=== PATIENT | female | born 1995 | race African-American/Black ===

== ENCOUNTER 2017-03-09 17:56 | Inpatient (IN) | payer OTHER ==
[~2017-03-09] VITALS: Ht 162.6 cm; Wt 66.4 kg
[2017-03-09] MEDS ORDERED: [UNRECOGNIZED DRUG - OTHER] IV STA (18:11)
[2017-03-09] MEDS ORDERED: ACETAMINOPHEN IV STA (18:11)
[2017-03-09] MEDS ORDERED: ONDANSETRON INJ 2 MG/ML 2 ML VIAL IV STA (18:11)
[2017-03-09] MEDS ORDERED: SODIUM CHLORIDE 0.9% 1000ML 2,000 ML IV STA (18:11)
[2017-03-09] MEDS ORDERED: ACETAMINOPHEN 1000 MG/100 ML IV IV ONE (18:19)
--- NOTE | 2017-03-09 18:29 | EMERGENCY ROOM VISIT NOTE ---
History Report prepared by Mignon: Vanessa Nguyen Under the Supervision of: Dr. David Dale M.D. First contact with patient: 18:05 Chief Complaint: NAUSEA Stated Complaint: NAUSEA, FEVER, CAN NOT KEEP ANYTHING DOWN Nursing Triage Summary: Having headache, abdominal pain, vomitting, and fevers since Saturday. Denies diarrhea. Came back from home in [place] last Saturday for the . History of Present Illness The patient is a 21 year old female who presents to the Emergency Room with complaints of nausea and fevers starting 4 days ago. Waxing and waning body aches, fevers, chills, nausea, vomiting, cough, fatigue, anorexia over last 4 days. Associated headache without neck stiffness nor photophobia. No neuro symptoms nor seizures. Admits returning from home in [place] about a week ago. She also notes that she had malaria in high school of which this is similar. She has took Tylenol yesterday for her symptoms. The patient denies any urinary symptoms or swelling. Exertion makes worse, nothing makes better. She has been on no recent antibiotics. No ebola exposure nor contacts that have worked with ebola nor been in [place]. Source of History: patient Onset: 4 days ago Timing: intermittent Associated Symptoms: + fevers, + headache, No urinary symptoms Note: pt. denies swelling. Review of Systems See HPI for pertinent positives & negatives. A total of 10 systems reviewed and were otherwise negative. Past Medical & Surgical Medical Problems: (1) Lactic acid increased (2) Malaria (3) Malaria (4) Sepsis Family History no pertinent family history stated Social History Smoking Status: Never Smoker Occupation Status: [employer] Current/Historical Medications Scheduled Acetaminophen (Tylenol), 1,000 MG PO PRN UD Allergies Coded Allergies: No Known Allergies (Unverified , 03/09/17) Physical Exam Vital Signs Date Time Temp Pulse Resp B/P (MAP) Pulse Ox O2 Delivery O2 Flow Rate FiO2 03/09/17 21:40 37.6 106 18 84/43 98 Room Air 03/09/17 20:00 39.0 103 18 97/45 98 Room Air 03/09/17 19:30 104 20 98 Room Air 03/09/17 18:53 112 19 100/56 100 Room Air 03/09/17 18:48 120 03/09/17 17:58 39.2 135 18 98/61 98 Room Air Physical Exam GENERAL: Patient is ill appearing, in moderate distress. Non productive cough, periodically dry heaving. HEENT: No acute trauma, normocephalic atraumatic, mucous membranes dehydrated, no nasal congestion, no scleral icterus. NECK: No stridor, no adenopathy, no meningismus, trachea is midline. LUNGS: No dyspnea. Active stridor, clear to auscultation and equal bilaterally. No wheeze, no rhonchi. HEART: Tachycardic. No murmurs, rubs, gallops appreciated. ABDOMEN: Soft, nontender, bowel sounds positive, no masses appreciated, no peritonitis. BACK: No midline tenderness, no CVA tenderness EXTREMITIES: Normal motion all extremities, no cyanosis, no edema. NEUROLOGIC: Alert and oriented, no acute motor or sensory deficits, no focal weakness, cranial nerves grossly intact. SKIN: No rash, no jaundice, no diaphoresis. Medical Decision & Procedures ER Provider Diagnostic Interpretation: Radiology results and stated below per my review and radiologist interpretation: CHEST ONE VIEW PORTABLE FINDINGS: The patient is rotated. No pneumothorax or pleural effusion is present. There is no consolidation to suggest pneumonia. Cardiomediastinal silhouette is normal. Pulmonary vascularity is normal. IMPRESSION: No acute cardiopulmonary findings. Electronically signed by: Myles Rico M.D. Laboratory Results 03/09/17 18:33 Red Blood Count 3.92, Mean Corpuscular Volume 86.5, Mean Corpuscular Hemoglobin 28.8, Mean Corpuscular Hemoglobin Concent 33.3, Mean Platelet Volume 10.7, Neutrophils (%) (Auto) 88.0, Lymphocytes (%) (Auto) 9.0, Monocytes (%) (Auto) 1.9, Eosinophils (%) (Auto) 0.2, Basophils (%) (Auto) 0.2, Neutrophils # (Auto) 4.98, Lymphocytes # (Auto) 0.51, Monocytes # (Auto) 0.11, Eosinophils # (Auto) 0.01, Basophils # (Auto) 0.01 03/09/17 18:30 Test 03/09/17 18:30 03/09/17 18:33 03/09/17 18:37 03/09/17 20:15 Anion Gap 11.0 mmol/L (3-11) Est Creatinine Clear Calc Drug Dose 70.8 ml/min Estimated GFR () 75.9 Estimated GFR (Non- 65.5 BUN/Creatinine Ratio 8.3 (10-20) Calcium Level 8.7 mg/dl (8.5-10.1) Magnesium Level 1.4 mg/dl (1.8-2.4) Total Bilirubin 2.1 mg/dl (0.2-1) Direct Bilirubin 0.5 mg/dl (0-0.2) Aspartate Amino Transf (AST/SGOT) 24 U/L (15-37) Alanine Aminotransferase (ALT/SGPT) 18 U/L (12-78) Alkaline Phosphatase 70 U/L (45-117) Total Creatine Kinase 98 U/L (26-192) Creatine Kinase MB < 0.5 ng/ml (0.5-3.6) Creatine Kinase MB Ratio (0-3.0) Troponin I < 0.015 ng/ml (0-0.045) Total Protein 8.0 gm/dl (6.4-8.2) Albumin 3.4 gm/dl (3.4-5.0) White Blood Count 5.66 K/uL (4.8-10.8) Red Blood Count 3.92 M/uL (4.2-5.4) Hemoglobin 11.3 g/dL (12.0-16.0) Hematocrit 33.9 % (37-47) Mean Corpuscular Volume 86.5 fL (80-100) Mean Corpuscular Hemoglobin 28.8 pg (25-34) Mean Corpuscular Hemoglobin Concent 33.3 g/dl (32-36) Platelet Count 123 K/uL (130-400) Mean Platelet Volume 10.7 fL (7.4-10.4) Neutrophils (%) (Auto) 88.0 % Lymphocytes (%) (Auto) 9.0 % Monocytes (%) (Auto) 1.9 % Eosinophils (%) (Auto) 0.2 % Basophils (%) (Auto) 0.2 % Neutrophils # (Auto) 4.98 K/uL (1.4-6.5) Lymphocytes # (Auto) 0.51 K/uL (1.2-3.4) Monocytes # (Auto) 0.11 K/uL (0.11-0.59) Eosinophils # (Auto) 0.01 K/uL (0-0.5) Basophils # (Auto) 0.01 K/uL (0-0.2) RDW Standard Deviation 39.7 fL (36.4-46.3) RDW Coefficient of Variation 12.3 % (11.5-14.5) Immature Granulocyte % (Auto) 0.7 % Immature Granulocyte # (Auto) 0.04 K/uL (0.00-0.02) Tear Drop Cells 1+ Echinocytes 2+ Prothrombin Time 12.0 SECONDS (9.0-12.0) Prothromb Time International Ratio 1.1 (0.9-1.1) Bedside Lactic Acid Venous 3.14 mmol/L (0.90-1.70) Urine Color ORANGE Urine Appearance CLEAR (CLEAR) Urine pH 5.5 (4.5-7.5) Urine Specific [place] 1.023 (1.000-1.030) Urine Protein 1+ (NEG) Urine Glucose (UA) NEG (NEG) Urine Ketones 3+ (NEG) Urine Occult Blood 1+ (NEG) Urine Nitrite NEG (NEG) Urine Bilirubin NEG (NEG) Urine Urobilinogen NEG (NEG) Urine Leukocyte Esterase NEG (NEG) Urine WBC (Auto) 1-5 /hpf (0-5) Urine RBC (Auto) 0-4 /hpf (0-4) Urine Hyaline Casts (Auto) 1-5 /lpf (0-5) Urine Epithelial Cells (Auto) >30 /lpf (0-5) Urine Bacteria (Auto) NEG (NEG) Urine Test NEG (NEG) Laboratory results as reviewed by me. Medications Administered Medications (Trade) Dose Ordered Sig/Joseph Route Start Time Stop Time Status Last Admin Dose Admin Sodium Chloride 2,000 ml @ 999 mls/hr Q2H1M STAT IV 03/09/17 18:11 03/09/17 20:11 DC 03/09/17 18:11 999 MLS/HR Acetaminophen 1000 mg/ Acetaminophen 200 ml @ 400 mls/hr NOW STAT IV 03/09/17 18:11 03/09/17 18:40 DC 03/09/17 18:30 400 MLS/HR Ondansetron HCl (Zofran Inj) 4 mg NOW STAT IV 03/09/17 18:11 03/09/17 18:13 DC 03/09/17 18:30 4 MG Cefepime HCl 1000 mg/Dextrose 111.3 ml @ 200 mls/hr NOW STAT IV 03/09/17 19:32 03/09/17 20:05 DC 03/09/17 20:10 200 MLS/HR Doxycycline Hyclate 100 mg/ Dextrose 110 ml @ 50 mls/hr NOW STAT IV 03/09/17 19:32 03/09/17 21:43 DC 03/09/17 20:48 50 MLS/HR Sodium Chloride 1,000 ml @ 200 mls/hr Q5H STAT IV 03/09/17 19:55 03/10/17 00:54 03/09/17 20:15 200 MLS/HR Quinine Sulfate (QUINine SULFATE CAP) 650 mg NOW STAT PO 03/09/17 21:02 03/09/17 21:04 DC 03/09/17 21:43 648 MG Sodium Chloride 1,000 ml @ 999 mls/hr Q1H1M STAT IV 03/09/17 21:24 03/09/17 22:24 03/09/17 21:38 999 MLS/HR ECG Indication: nausea Rate (beats per minute): 114 Rhythm: sinus tachycardia Findings: no acute ischemic change, no ectopy ED Course 1809: The patient was evaluated in room A4B. A complete history and physical exam was performed. 1810: Nursing at bedside requested 2 IVs and a sepsis workup started. 1810: Zofran Inj 4 mg IV, Acetaminophen 1000 mg/Acetaminophen 200 ml @ 400 mls/ hr Protocol IV, Sodium Chloride 2000 ml @ 999 mls/hr. 1818: Ofirmev Iv 1000mg IV. 1838: I rechecked on the patient, her lactate is 4. 0: I reevaluated the patient she is no longer nauseous or shaking. Her heart rate is down to 107. The patient states that she flew directly from [facility] to [place]. She denies contact with anyone with Ebola or anyone who was sick. The patient denies that any of her family members have been recently been sick. She denies being on antibiotics. 1931: Doxycycline Hyclate 100 mg/Dextrose 110 ml @50 mls/hr IV. Cefepime HCl 1000 mg/Dextrose 111.3 ml @200 mls/hr IV. 1954: Sodium Chloride 1000 ml @ 200 mls/hr. 2014 I reevaluated the patient she is feeling much better. 2101: Quinine Sulfate 650 mg PO. 2030: Dr. Bustamante states we should transfer the patient to higher care. 2034: Discussed case with [facility] Malaria Hotline. Waiting for their return call to see what facilities have Malaria medication. 2047: Return call from Dr. Oviedo, the on-call Malaria specialist for the [facility]. He feels that as long as the patient's percentage is less than 5% she is not considered a severe malaria case. If this is the case and the patient can tolerate PO medications, she will be fine being monitored in our facility. 2052: Dr Brandin JACKMAN-Pathology stated that the patient consists most with malaria falciparum and has a 1% infection. 2057: I updated Dr. Tyron JACKMAN about the patient's results from Dr. Brandin JACKMAN -Pathology as well as the [facility]'s suggestions. 2123: Sodium Chloride 1000 ml @ 999 mls/hr. 2124: I reevaluated the patient, she is still tachycardic and is now sitting up. She no longer nauseous and is willing to be admitted for the night. 2125: Discussed the patient's case wit Dr. Armstrong.ZAIDA The patient will be evaluated for further treatment and disposition. 2145: Upon reevaluation, the patient is resting. Discussed results and treatment plan with the patient. She verbalized understanding and agreement with the treatment plan. The patient will be evaluated for further management. Medical Decision Differential: Viral, Pharyngitis, Cellulitis, Pneumonia, Influenza, Meningitis, Sepsis, Bacteremia, UTI/Pyelonephritis, Endocrine, Toxicologic, Parasitic Infection, Ebola, amongst other pathologies entertained. 21 yr old female with nausea, vomiting, body aches, chills/fevers, coming in waves over last few days. Notes recent return from [facility] for her [employer] yr college at [employer]. She is ill appearing in moderate distress. Labs with elevated lactic, mild bili elevation, hypoK, hypoMag, mild anemia, mild thrombocytopenia. WBC OK. EKG OK. She is not severely ascidotic. Her labs are not consistent with severe malarial infection. HR and BP improved with fluids and while septic by definition I do not feel that she is septic shock, and I feel it is likely much related to dehydration from fevers and lack of po intake over last few days. Regardless she was started on broad spectrum ABX, with Cefepime and Doxy. Doxy given concern this is malaria and it is only IV med that could treat malarial infection we have in hospital (besides clinda). She is breathing comfortably and feeling much better after fluids, zofran and IV Tylenol. She is mildly orthostatic and notes thirst still thus further fluids. Initial malaria smear positive thus I did talk this over with ID who noted that transfer will likely be necessary but will await further info from path. Path report with Falciparum most likely cause and her count being 1%. Reviewed with [facility] Malaria Physician (Dr Oviedo) to discuss options for treatment facilities and they note that patient does not currently meet severe falciparum infection and advise Oral meds if patient can tolerate this. Advise oral treatment of: 1. Malarone, 2. Caortin, 3. Quinine/Doxy, or 4. Mefloquine depending on what we have in facility. We do not have first two options thus I added on oral quinine to initial doxy I'd given earlier. Patient feeling well, she wishes to stay here if possible and understands if worsening or gets to point where she can not keep down meds she may need transfer. I re-discussed with Dr Altamirano and note patient has stabilized, is comfortable and looks well. We reviewed discussion with [facility] and their recommendations. He notes that with 1% malaria and her having responded well to fluids it is reasonable to keep here for monitoring/treatment. Appreciate his input throughout stay. Medication Reconcilliation Current Medication List: was personally reviewed by me Blood Pressure Screening Patient's blood pressure: Low blood pressure Blood pressure disposition: Did not require urgent referral Consults Time Called: 2029 Consulting Physician: Dr. Altamirano-[facility] Returned Call: 2030 Discussed the patient's case. Additional Consults: Time Called: 2045 Consulted Physician: Dr. Oviedo, the on-call Malaria specialist for the [facility] Returned Call: 2047 Additional Comments: Discussed the patient's case. He feels that as long as the patient's percentage is less than 5% she is not considered a severe malaria case. If this is the case and the patient can tolerate PO medications, she will be fine being monitored in our facility. Time Called: 2050 Consulted Physician: Dr. Brandin JACKMAN-Pathology Returned Call: 2052 Additional Comments: Discussed the patient's case. Dr. Ghotra states that the patient most consists with malaria falciparum and has a 1% infection. Impression Primary Impression: Severe dehydration Additional Impressions: Sepsis Malaria Falciparum malaria Hypokalemia Hypomagnesemia Critical Care I have personally spent greater than 125 minutes of critical care time in the direct management of this patient. This was a life/limb threatening event. This includes time spent evaluating patient, direct bedside care, chart review, placing orders, interpretation of diagnostic studies, discussion with consultants, patient, and family members, as well as other required patient management activities. This 125 minutes is in excess of all separately billable procedures. Scribe Attestation The scribe's documentation has been prepared under my direction and personally reviewed by me in its entirety. I confirm that the note above accurately reflects all work, treatment, procedures, and medical decision making performed by me. Departure Information Dispostion Being Evaluated By Hospitalist Referrals No Doctor, Assigned (PCP) Patient Instructions My [facility] Problem Qualifiers
[2017-03-09] MEDS ORDERED: ACET-1256 PO (19:05)
[2017-03-09 19:11] LABS: HEMATOCRIT 33.9 % (37-47); MEAN CELL VOLUME 86.5 fL (80-100); MEAN CORPUSCULAR HEMOGLOBIN 28.8 pg (25-34); MEAN CORPUSCULAR HGB CONC 33.3 g/dl (32-36); MEAN PLATELET VOLUME 10.7 fL (7.4-10.4); PLATELET COUNT 123 K/uL (130-400); RED BLOOD COUNT 3.92 M/uL (4.2-5.4); WHITE BLOOD COUNT 5.66 K/uL (4.8-10.8)
[2017-03-09 19:27] LABS: INR 1.1 (0.9-1.1)
[2017-03-09 19:29] LABS: ALT/SGPT 18 U/L (12-78); BLOOD UREA NITROGEN 10 mg/dl (7-18); BUN/CREATININE RATIO 8.3 (10-20); CALCIUM 8.7 mg/dl (8.5-10.1); CARBON DIOXIDE 21 mmol/L (21-32); CHLORIDE 104 mmol/L (98-107); GLUCOSE 106 mg/dl (70-99); MAGNESIUM 1.4 mg/dl (1.8-2.4); SODIUM 136 mmol/L (136-145)
--- NOTE | 2017-03-09 19:29 | DIAGNOSTIC IMAGING REPORT ---
CHEST ONE VIEW PORTABLE CLINICAL HISTORY: Fever. COMPARISON STUDY: No previous studies for comparison. FINDINGS: The patient is rotated. No pneumothorax or pleural effusion is present. There is no consolidation to suggest pneumonia. Cardiomediastinal silhouette is normal. Pulmonary vascularity is normal. IMPRESSION: No acute cardiopulmonary findings. Electronically signed by: Myles Rico M.D. 03/09/2017 7:28 PM Dictated Date/Time: 03/09/2017 7:27 PM
[2017-03-09] MEDS ORDERED: CEFEPIME IV 1,000 MG in DEXTROSE 5% 100ML 100 ML IV STA (19:32)
[2017-03-09] MEDS ORDERED: DOXYCYCLINE IV 100 MG in DEXTROSE 5% 100ML 100 ML IV STA (19:32)
[2017-03-09 19:34] LABS: ALKALINE PHOSPHATASE 70 U/L (45-117); AST/SGOT 24 U/L (15-37)
[2017-03-09 19:37] LABS: BASO % 0.2 %; BASO ABS # 0.01 K/uL (0-0.2); COMPLETE YES; ECHINOCYTES 2+; EOS % 0.2 %; IG% 0.7 %; LYMPH ABS # 0.51 K/uL (1.2-3.4); MONO % 1.9 %; TEAR DROP CELLS 1+
[2017-03-09] MEDS ORDERED: SODIUM CHLORIDE 0.9% 1000ML 1,000 ML IV STA ×3 (19:55→22:42)
[2017-03-09 20:30] LABS: URINE APPEARANCE CLEAR (CLEAR); URINE COLOR ORANGE; URINE EPITHELIAL CELL AUTO >30 /lpf (0-5); URINE NITRITE NEG (NEG); URINE PH 5.5 (4.5-7.5); URINE SPECIFIC GRAVITY 1.023 (1.000-1.030); UROBILINOGEN NEG (NEG); ZZUR CULT IF INDIC CLEAN CATCH NO
[2017-03-09 20:35] LABS: MANUAL MICROSCOPIC REQUIRED? NO; REVIEW REQ? NO
[2017-03-09 20:36] LABS: URINE BILIRUBIN NEG (NEG)
[2017-03-09] MEDS ORDERED: QUINine SULFATE CAP 324 MG CAP PO STA (21:02)
--- NOTE | 2017-03-09 21:37 | History and Physical ---
History & Physical Date & Time of Service: Mar 09, 2017 at 21:32 Chief Complaint: Nausea, Fever, Can Not Keep Anything Down Primary Care Physician: [facility] History of Present Illness Source: patient Bisi is a 21 year old female who presents to the ER with fever, nausea and vomiting. She was first was unwell on Saturday (4 days ago) with chills and nausea, then woke up better on Saturday feeling better. On she again fell ill with fevers and vomiting and spent most of the day in bed. On Saturday she went to [facility] but felt better again so they sent her home with presumed diagnosis of gastroenteritis. Today she has again been having fever and is unable to tolerate fluids with vomiting. She feels dehydrated. She returned from [facility] for 2 months on Saturday (6 days previously). She denies any contact with people with viral hemorrhagic fever and she denies any hematemesis. Previously had malaria multiple times before in the past (last time in 12th grade). In the ER she had a temperature and was tachycardic therefore was treated for sepsis with cefepime. Peripheral smear subsequently showed malaria parasites - most consistent with P.Falciparum with a count of 1%. This was discussed by the ER doctor with [facility] and Dr Altamirano and decided to treat with 7 days quinine + doxycycline. She denies any nausea, vomiting or abdominal pain currently. She denies any GI bleeding, constipation of diarrhea. 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 Allergies Coded Allergies: No Known Allergies (Unverified , 03/09/17) Home Medications Scheduled Acetaminophen (Tylenol), 1,000 MG PO PRN UD Review of Systems Constitutional: + fever, + chills Eyes: No worsening of vision ENT: No hearing loss Respiratory: No cough, No sputum, No shortness of breath Cardiovascular: No chest pain, No edema Abdomen: No pain, No nausea, No vomiting, No diarrhea, No constipation Musculoskeletal: + muscle pain (generalized) Genitourinary - Female: No dysuria, No urinary frequency, No urinary urgency Endocrine: + fatigue, + excessive thirst, No excessive urination Hematologic / Lymphatic: No abnormal bleeding/bruising Integumentary: No rash, No itch Physical Exam Vital Signs Date Time Temp Pulse Resp B/P (MAP) Pulse Ox O2 Delivery O2 Flow Rate FiO2 03/09/17 20:00 39.0 103 18 97/45 98 Room Air 03/09/17 19:30 104 20 98 Room Air 03/09/17 18:53 112 19 100/56 100 Room Air 03/09/17 18:48 120 03/09/17 17:58 39.2 135 18 98/61 98 Room Air General Appearance: WD/WN, no apparent distress Head: normocephalic, atraumatic Eyes: normal inspection (pupils equal), EOMI Respiratory/Chest: chest non-tender, lungs clear, normal breath sounds, no respiratory distress, no accessory muscle use Cardiovascular: no murmur, normal peripheral pulses, + tachycardia (regular rhythm) Abdomen/GI: normal bowel sounds, non tender, soft Back: no CVA tenderness Extremities/Musculoskelatal: no calf tenderness, normal capillary refill, no pedal edema Neurologic/Psych: education adviser II-XII nml as tested (no facial droop, speech normal), no motor/sensory deficits (grossly), alert, oriented x 3 Skin: normal color, warm/dry, no rash Diagnostics Laboratory Results Results Past 24 Hours Test 03/09/17 18:30 03/09/17 18:33 03/09/17 18:37 03/09/17 20:15 Range/Units Sodium Level 136 136-145 mmol/L Potassium Level 3.0 3.5-5.1 mmol/L Chloride Level 104 98-107 mmol/L Carbon Dioxide Level 21 21-32 mmol/L Anion Gap 11.0 3-11 mmol/L Blood Urea Nitrogen 10 7-18 mg/dl Creatinine 1.20 0.60-1.20 mg/dl Est Creatinine Clear Calc Drug Dose 70.8 ml/min Estimated GFR () 75.9 Estimated GFR (Non- 65.5 BUN/Creatinine Ratio 8.3 10-20 Random Glucose 106 70-99 mg/dl Calcium Level 8.7 8.5-10.1 mg/dl Magnesium Level 1.4 1.8-2.4 mg/dl Total Bilirubin 2.1 0.2-1 mg/dl Direct Bilirubin 0.5 0-0.2 mg/dl Aspartate Amino Transf (AST/SGOT) 24 15-37 U/L Alanine Aminotransferase (ALT/SGPT) 18 12-78 U/L Alkaline Phosphatase 70 45-117 U/L Total Creatine Kinase 98 26-192 U/L Creatine Kinase MB < 0.5 0.5-3.6 ng/ml Creatine Kinase MB Ratio 0-3.0 Troponin I < 0.015 0-0.045 ng/ml Total Protein 8.0 6.4-8.2 gm/dl Albumin 3.4 3.4-5.0 gm/dl White Blood Count 5.66 4.8-10.8 K/uL Red Blood Count 3.92 4.2-5.4 M/uL Hemoglobin 11.3 12.0-16.0 g/dL Hematocrit 33.9 37-47 % Mean Corpuscular Volume 86.5 80-100 fL Mean Corpuscular Hemoglobin 28.8 25-34 pg Mean Corpuscular Hemoglobin Concent 33.3 32-36 g/dl Platelet Count 123 130-400 K/uL Mean Platelet Volume 10.7 7.4-10.4 fL Neutrophils (%) (Auto) 88.0 % Lymphocytes (%) (Auto) 9.0 % Monocytes (%) (Auto) 1.9 % Eosinophils (%) (Auto) 0.2 % Basophils (%) (Auto) 0.2 % Neutrophils # (Auto) 4.98 1.4-6.5 K/uL Lymphocytes # (Auto) 0.51 1.2-3.4 K/uL Monocytes # (Auto) 0.11 0.11-0.59 K/uL Eosinophils # (Auto) 0.01 0-0.5 K/uL Basophils # (Auto) 0.01 0-0.2 K/uL RDW Standard Deviation 39.7 36.4-46.3 fL RDW Coefficient of Variation 12.3 11.5-14.5 % Immature Granulocyte % (Auto) 0.7 % Immature Granulocyte # (Auto) 0.04 0.00-0.02 K/uL Tear Drop Cells 1+ Echinocytes 2+ Prothrombin Time 12.0 9.0-12.0 SECONDS Prothromb Time International Ratio 1.1 0.9-1.1 Bedside Lactic Acid Venous 3.14 0.90-1.70 mmol/L Urine Color ORANGE Urine Appearance CLEAR CLEAR Urine pH 5.5 4.5-7.5 Urine Specific [place] 1.023 1.000-1.030 Urine Protein 1+ NEG Urine Glucose (UA) NEG NEG Urine Ketones 3+ NEG Urine Occult Blood 1+ NEG Urine Nitrite NEG NEG Urine Bilirubin NEG NEG Urine Urobilinogen NEG NEG Urine Leukocyte Esterase NEG NEG Urine WBC (Auto) 1-5 0-5 /hpf Urine RBC (Auto) 0-4 0-4 /hpf Urine Hyaline Casts (Auto) 1-5 0-5 /lpf Urine Epithelial Cells (Auto) >30 0-5 /lpf Urine Bacteria (Auto) NEG NEG Urine Test NEG NEG Microbiology Results 03/09/17 Blood Culture, Received Pending 03/09/17 Blood Culture, Received Pending 03/09/17 Parasitology Test - Final, Complete Diagnostic Radiology PERIPHERAL SMEAR FOR PARASITES MALARIA PARASITES IDENTIFIED. DOUBLE RING FORMS, SMALL RING FORMS AND "HEADPHONE" FORMS ARE SEEN. THIS MORPHOLOGY IS MOST CONSISTENT WITH P.FALCIPARUM. CLINICAL HISTORY HAS PATIENT VISITING [facility] AND THUS P.KNOWLESI IS UNLIKELY BECAUSE IT IS INDEMIC IN [place]. COUNT ON THIN PREP IS 2 MALARIA PER 200 RBC'S OR 1%. LIN TROTTER M.D./citlali CXR normal EKG Sinus tachycardia 114 bpm Impression Assessment and Plan 21 year old female admission for malaria, hypotension, hypokalemia, hypomagnesemia. Malaria - P. Falciparum - IV doxycycline + PO quinine Sepsis with elevated lactic acid - Antimalarials as above - repeat lactic acid at 22:30 - rehydrate with IVF - give additional 1L NSS bolus now. Hypokalemia / hypomagnesemia - trend and replace as required VTE Prophylaxis - young age, mobile and likely can be discharged in the near future - mechanical prophylaxis only Code - Full Disposition - admit to telemetry due to low blood pressure for closer monitoring Resident Physician Supervision Note: I was present with Dr. Green during the history and exam. I discussed the case with the resident and agree with the findings and plan as documented in the note. Any exceptions or clarifications are listed here: 21 y/o F returning to school at [employer] from [facility] - presenting with fever, N/V, KEARNEY, body aches - tested + for Malaria Falciparum OE AAO x 3 S1,2 R CTAB NT, ND No CCE P: Infectious disease was consulted - pt does not meat criteria for severe malaria and can therefore be treated with oral meds - she did meet sepsis criteria on arrival however, so will be admitted for treatment initially. Per recommendations and med availability the pt was started on Doxy and Quinine Documented By: Keagan Armstrong Level of Care Telemetry Resuscitation Status FULL RESUSCITATION VTE Prophylaxis VTE Risk Assessment Done? Y/N: Yes Risk Level: Very Low Given or contraindicated: Treatment not indicated (young age, mobile) Additional Copies To [facility] Resident Tracking Resident Involvement: Resident Care Provided Care Provided: Adult Hospital Medicine
[2017-03-09] MEDS ORDERED: ACETAMINOPHEN IV 650 MG in EMPTY BAG 0 ML IV PRN (22:00)
[2017-03-09] MEDS ORDERED: POTASSIUM CHLORIDE 10 MEQ / 100ML WTR IV ONE (22:27)
[2017-03-09] MEDS ORDERED: MAGNESIUM SULFATE 1GM / D5W 1 GM BAG ONE (22:27)
[2017-03-09] MEDS: ONDANSETRON INJ 2 MG/ML 2 ML VIAL IV PRN (22:57)
[2017-03-09 23:36] LABS: BUN/CREATININE RATIO 9.3 (10-20); CALCIUM 7.2 mg/dl (8.5-10.1); CREATININE 0.9 mg/dl (0.60-1.20); MAGNESIUM 1.4 mg/dl (1.8-2.4); POTASSIUM 2.9 mmol/L (3.5-5.1)
[2017-03-09 23:39] VITALS: BP 96/57; PULSE 98; TEMP 36.7; O2SAT 99; Ht 162.6 cm; Wt 66.4 kg
[2017-03-09 23:40] LABS: ALB/GLOB RATIO 0.6 (0.9-2)
[2017-03-09] MEDS ORDERED: POTASSIUM CHLR 10 MEQ / WTR 10 MEQ in PREMIXED WATER 100 ML IV ONE (23:45)
[2017-03-09] MEDS ORDERED: MAGNESIUM SULFATE 1GM / D5W 1 GM in PREMIXED IN D5W 100 ML IV ONE (23:45)
[2017-03-10] MEDS: NSS + 20MEQ KCL 1000ML 1,000 ML IV SCH ×4 (00:17→17:30)
[2017-03-10 04:00] VITALS: BP 94/48; PULSE 99; TEMP 36.7; O2SAT 99
[2017-03-10] MEDS: QUINine SULFATE CAP 324 MG CAP PO SCH ×3 (05:30→21:23)
[2017-03-10 06:16] LABS: BUN/CREATININE RATIO 8.1 (10-20); CALCIUM 6.9 mg/dl (8.5-10.1); CREATININE 0.84 mg/dl (0.60-1.20); MAGNESIUM 1.7 mg/dl (1.8-2.4); POTASSIUM 3.5 mmol/L (3.5-5.1)
[2017-03-10 06:19] LABS: ALB/GLOB RATIO 0.6 (0.9-2)
[2017-03-10 06:24] LABS: MEAN CELL VOLUME 86.5 fL (80-100); MEAN CORPUSCULAR HEMOGLOBIN 29.1 pg (25-34); MEAN CORPUSCULAR HGB CONC 33.6 g/dl (32-36); MEAN PLATELET VOLUME 9.8 fL (7.4-10.4); PLATELET COUNT 96 K/uL (130-400); RED BLOOD COUNT 2.89 M/uL (4.2-5.4); WHITE BLOOD COUNT 5.44 K/uL (4.8-10.8)
[2017-03-10] MEDS ORDERED: MAGNESIUM SULFATE 1GM / D5W 1 GM BAG IV STA (06:41)
[2017-03-10 06:44] LABS: BASO % 0.4 %; BASO ABS # 0.02 K/uL (0-0.2); COMPLETE YES; ECHINOCYTES 1+; EOS % 0.2 %; IG% 0.6 %; LYMPH % 17.3 %; LYMPH ABS # 0.94 K/uL (1.2-3.4); MONO % 13.1 %; NEUT % 68.4 %; PLT ESTIMATE DECREASED
[2017-03-10] MEDS ORDERED: MAGNESIUM SULFATE 1GM / D5W 1 GM in PREMIXED IN D5W 100 ML IV SCH (07:00)
[2017-03-10 07:48] VITALS: BP 103/68; PULSE 93; TEMP 37; O2SAT 97
[2017-03-10] MEDS ORDERED: DOXYCYCLINE HYCLATE 100 MG CAP PO SCH (09:00)
[2017-03-10] MEDS: DOXYCYCLINE IV 100 MG in DEXTROSE 5% 100ML 100 ML IV SCH ×2 (10:14→21:29)
[2017-03-10] MEDS: ONDANSETRON INJ 2 MG/ML 2 ML VIAL IV PRN ×2 (12:12→23:01)
[2017-03-10 12:17] VITALS: BP 95/64; PULSE 79; TEMP 37.1; O2SAT 98
--- NOTE | 2017-03-10 13:52 | Family Medicine Progress Note ---
Progress Note Date of Service Mar 10, 2017. Subjective Pt evaluation today including: conversation w/ patient, physical exam, chart review, lab review, review of studies Pt says that she feels much better after all the IV fluids but still is a bit tired. Also says she has a decreased appetite and hasn't been eating much recently due to the emesis. This morning (time of interview), she denied any CP , SOB, N/V/D, abd pain (but a little discomfort), or other acute c/o. Constitutional: + fever, + weakness Respiratory: No cough, No shortness of breath Cardiovascular: No chest pain, No edema Abdomen: No nausea, No vomiting (not this am), No diarrhea Skin: No rash Medications Current Inpatient Medications Medications (Trade) Dose Ordered Sig/Joseph Route Start Time Stop Time Status Last Admin Dose Admin Ondansetron HCl (Zofran Inj) 4 mg Q6H PRN IV 03/09/17 22:00 04/08/17 21:59 03/10/17 12:12 4 MG Acetaminophen 650 mg/Empty Bag 65 ml @ 260 mls/hr Q6H PRN IV 03/09/17 22:00 04/08/17 21:59 03/10/17 10:13 260 MLS/HR Quinine Sulfate (QUINine SULFATE CAP) 648 mg Q8 PO 03/10/17 06:00 04/09/17 05:59 03/10/17 05:30 648 MG Doxycycline Hyclate 100 mg/ Dextrose 110 ml @ 50 mls/hr BID@0900,2100 IV 03/10/17 09:00 03/24/17 08:59 03/10/17 10:14 50 MLS/HR Potassium Chloride/Sodium Chloride 1,000 ml @ 200 mls/hr Q5H IV 03/10/17 00:00 04/09/17 00:00 03/10/17 10:14 200 MLS/HR Objective Vital Signs Date Time Temp Pulse Resp B/P (MAP) Pulse Ox O2 Delivery O2 Flow Rate FiO2 03/10/17 12:17 37.1 79 18 95/64 (74) 98 Room Air 03/10/17 12:00 Room Air 03/10/17 08:00 Room Air 03/10/17 07:48 37.0 93 20 103/68 (80) 97 Room Air 03/10/17 04:00 36.7 99 18 94/48 (63) 99 Room Air 03/10/17 04:00 Room Air 03/09/17 23:39 36.7 98 18 96/57 99 Room Air 03/09/17 23:06 105 18 96 03/09/17 22:43 106 18 95/48 99 Room Air 03/09/17 22:11 103 18 88/37 98 Room Air 03/09/17 21:40 37.6 106 18 84/43 98 Room Air 03/09/17 20:00 39.0 103 18 97/45 98 Room Air 03/09/17 19:30 104 20 98 Room Air 03/09/17 18:53 112 19 100/56 100 Room Air 03/09/17 18:48 120 03/09/17 17:58 39.2 135 18 98/61 98 Room Air Physical Exam General Appearance: WD/WN (but appears a bit tired) Neck: supple Respiratory/Chest: lungs clear, normal breath sounds Cardiovascular: regular rate, rhythm (with occasional tachycardia 100's), no edema, no murmur Abdomen: normal bowel sounds, non tender, soft Extremities: normal range of motion, no pedal edema, no calf tenderness Neurologic/Psychiatric: alert Notes: - 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 Laboratory Results 03/10/17 05:35 Red Blood Count 2.89, Mean Corpuscular Volume 86.5, Mean Corpuscular Hemoglobin 29.1, Mean Corpuscular Hemoglobin Concent 33.6, Mean Platelet Volume 9.8, Neutrophils (%) (Auto) 68.4, Lymphocytes (%) (Auto) 17.3, Monocytes (%) (Auto) 13.1, Eosinophils (%) (Auto) 0.2, Basophils (%) (Auto) 0.4, Neutrophils # (Auto ) 3.73, Lymphocytes # (Auto) 0.94, Monocytes # (Auto) 0.71, Eosinophils # (Auto ) 0.01, Basophils # (Auto) 0.02 03/10/17 05:35 Test 03/09/17 18:30 03/09/17 18:33 03/09/17 18:37 03/09/17 20:15 Direct Bilirubin 0.5 mg/dl (0-0.2) Total Creatine Kinase 98 U/L (26-192) Creatine Kinase MB < 0.5 ng/ml (0.5-3.6) Creatine Kinase MB Ratio (0-3.0) Troponin I < 0.015 ng/ml (0-0.045) Tear Drop Cells 1+ Prothrombin Time 12.0 SECONDS (9.0-12.0) Prothromb Time International Ratio 1.1 (0.9-1.1) Bedside Lactic Acid Venous 3.14 mmol/L (0.90-1.70) Urine Color ORANGE Urine Appearance CLEAR (CLEAR) Urine pH 5.5 (4.5-7.5) Urine Specific [place] 1.023 (1.000-1.030) Urine Protein 1+ (NEG) Urine Glucose (UA) NEG (NEG) Urine Ketones 3+ (NEG) Urine Occult Blood 1+ (NEG) Urine Nitrite NEG (NEG) Urine Bilirubin NEG (NEG) Urine Urobilinogen NEG (NEG) Urine Leukocyte Esterase NEG (NEG) Urine WBC (Auto) 1-5 /hpf (0-5) Urine RBC (Auto) 0-4 /hpf (0-4) Urine Hyaline Casts (Auto) 1-5 /lpf (0-5) Urine Epithelial Cells (Auto) >30 /lpf (0-5) Urine Bacteria (Auto) NEG (NEG) Urine Test NEG (NEG) Test 03/09/17 23:03 03/10/17 05:35 03/10/17 13:24 Activated Partial Thromboplast Time 25.4 SECONDS (21.0-31.0) Partial Thromboplastin Ratio 1.0 White Blood Count 5.44 K/uL (4.8-10.8) Red Blood Count 2.89 M/uL (4.2-5.4) Hemoglobin 8.4 g/dL (12.0-16.0) Hematocrit 25.0 % (37-47) Mean Corpuscular Volume 86.5 fL (80-100) Mean Corpuscular Hemoglobin 29.1 pg (25-34) Mean Corpuscular Hemoglobin Concent 33.6 g/dl (32-36) Platelet Count 96 K/uL (130-400) Mean Platelet Volume 9.8 fL (7.4-10.4) Neutrophils (%) (Auto) 68.4 % Lymphocytes (%) (Auto) 17.3 % Monocytes (%) (Auto) 13.1 % Eosinophils (%) (Auto) 0.2 % Basophils (%) (Auto) 0.4 % Neutrophils # (Auto) 3.73 K/uL (1.4-6.5) Lymphocytes # (Auto) 0.94 K/uL (1.2-3.4) Monocytes # (Auto) 0.71 K/uL (0.11-0.59) Eosinophils # (Auto) 0.01 K/uL (0-0.5) Basophils # (Auto) 0.02 K/uL (0-0.2) RDW Standard Deviation 40.3 fL (36.4-46.3) RDW Coefficient of Variation 12.6 % (11.5-14.5) Immature Granulocyte % (Auto) 0.6 % Immature Granulocyte # (Auto) 0.03 K/uL (0.00-0.02) Platelet Estimate DECREASED Red Blood Cell Morphology Echinocytes 1+ Anion Gap 6.0 mmol/L (3-11) Est Creatinine Clear Calc Drug Dose 101.1 ml/min Estimated GFR () 116.8 Estimated GFR (Non- 100.8 BUN/Creatinine Ratio 8.1 (10-20) Lactic Acid Level 1.0 mmol/L (0.4-2.0) Calcium Level 6.9 mg/dl (8.5-10.1) Magnesium Level 1.7 mg/dl (1.8-2.4) Total Bilirubin 0.9 mg/dl (0.2-1) Aspartate Amino Transf (AST/SGOT) 16 U/L (15-37) Alanine Aminotransferase (ALT/SGPT) 12 U/L (12-78) Alkaline Phosphatase 51 U/L (45-117) Total Protein 5.8 gm/dl (6.4-8.2) Albumin 2.2 gm/dl (3.4-5.0) Globulin 3.6 gm/dl (2.5-4.0) Albumin/Globulin Ratio 0.6 (0.9-2) Assessment and Plan ## Malaria - Return from [place] 07Aug, sx onset 15Aug. Positive smear with likely Falciparum, count 1%. - Initial [facility] rx recs: Malarone, Caortin, Quinine/Doxy, or mefloquine. - Based on this (and rx availability), stared on IV doxy & PO quinine. - Dr. Ghotra ([facility]) initially notified. ID consulted as well, pending their recommendations. ## Sepsis - 19Aug: Started in ED on Cefepime & Doxy, given IVF. 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 Do not presently suspect infection outside of malaria, but await ID recs. ## Hypokalemia & Hypomagnesemia - KCl and Mg replacement. Trending. ## Dehydration - Provided IVF on arrival to ED and overnight, much sx improvement. Zofran prn for any recurrent nausea. DVT prophy: Mechanical only Code status: Full Discussed the above on attending rounds this morning. MALORIE, PGY1 [employer]ile [employer] Manager Physician Supervision Note: I was present with Dr. Edwards during the history and exam. I discussed the case with the resident and agree with the findings and plan as documented in the note. Any exceptions or clarifications are listed here: Patient remains afebrile and hemodynamically stable. She complains of feeling tired with some mild nausea, but no emesis. Appreciate infectious disease consultation. She overall looks better, she is not tolerating by mouth food and fluids well enough for discharge. Documented By: Bartolome Dorantes Resident Tracking Resident Involvement: Resident Care Provided Care Provided: Adult Hospital Medicine (rounds)
[2017-03-10 15:27] VITALS: BP 95/61; PULSE 81; TEMP 36.5; O2SAT 99
--- NOTE | 2017-03-10 18:40 | Medical Consult ---
Consultation Date of Consultation: Mar 10, 2017. Attending Physician: Keagan Armstrong M.D. Reason for Consultation: Malaria 1% History of Present Illness 21-year-old female from [facility], with several episodes of malaria in the past, recently traveled back to [facility] and she reports that she did not take malaria prophylaxis on this trip. She was well until approximately 4 days prior to admission when she noted onset nausea and vomiting, then fever and chills with weakness. No significant headache, shortness of breath, or rash. She ultimately came to the emergency department were peripheral smear was reviewed and showed ring forms consistent with diagnosis of falciparum malaria. She has been started on combination of quinine and doxycycline, and this morning states she is feeling better with decrease in nausea and vomiting, and decrease in fever. Has become more anemic with hemoglobin now 8.5. Platelet count has been stable. No worsening respiratory or neurologic symptoms. Past Medical/Surgical History Medical Problems: (1) Falciparum malaria Status: Acute (2) Hypokalemia Status: Acute (3) Hypomagnesemia Status: Acute (4) Severe dehydration Status: Acute Medical Problems: (1) Lactic acid increased (2) Malaria (3) Malaria (4) Sepsis Family History noncontributory Social History Smoking Status: Never Smoker Drug Use: none Occupation Status: [employer] Allergies Coded Allergies: No Known Allergies (Unverified , 03/09/17) Current Inpatient Medications Current Inpatient Medications Medications (Trade) Dose Ordered Sig/Joseph Route Start Time Stop Time Status Last Admin Dose Admin Ondansetron HCl (Zofran Inj) 4 mg Q6H PRN IV 03/09/17 22:00 04/08/17 21:59 03/10/17 12:12 4 MG Acetaminophen 650 mg/Empty Bag 65 ml @ 260 mls/hr Q6H PRN IV 03/09/17 22:00 04/08/17 21:59 03/10/17 10:13 260 MLS/HR Quinine Sulfate (QUINine SULFATE CAP) 648 mg Q8 PO 03/10/17 06:00 04/09/17 05:59 03/10/17 14:03 648 MG Doxycycline Hyclate 100 mg/ Dextrose 110 ml @ 50 mls/hr BID@0900,2100 IV 03/10/17 09:00 03/24/17 08:59 03/10/17 10:14 50 MLS/HR Potassium Chloride/Sodium Chloride 1,000 ml @ 200 mls/hr Q5H IV 03/10/17 00:00 04/09/17 00:00 03/10/17 17:30 200 MLS/HR Review of Systems all systems were reviewed and are negative except as per HPI Physical Exam Date Time Temp Pulse Resp B/P (MAP) Pulse Ox O2 Delivery O2 Flow Rate FiO2 03/10/17 16:00 Room Air 03/10/17 15:27 36.5 81 18 95/61 (72) 99 Room Air 03/10/17 12:17 37.1 79 18 95/64 (74) 98 Room Air 03/10/17 12:00 Room Air 03/10/17 08:00 Room Air 03/10/17 07:48 37.0 93 20 103/68 (80) 97 Room Air 03/10/17 04:00 36.7 99 18 94/48 (63) 99 Room Air 03/10/17 04:00 Room Air 03/09/17 23:39 36.7 98 18 96/57 99 Room Air 03/09/17 23:06 105 18 96 03/09/17 22:43 106 18 95/48 99 Room Air 03/09/17 22:11 103 18 88/37 98 Room Air 03/09/17 21:40 37.6 106 18 84/43 98 Room Air 03/09/17 20:00 39.0 103 18 97/45 98 Room Air 03/09/17 19:30 104 20 98 Room Air 03/09/17 18:53 112 19 100/56 100 Room Air 03/09/17 18:48 120 General Appearance: WD/WN, no apparent distress Head: normocephalic, atraumatic Eyes: normal inspection, EOMI ENT: normal ENT inspection, pharynx normal Neck: supple, no adenopathy, thyroid normal, trachea midline Respiratory/Chest: chest non-tender, lungs clear, normal breath sounds, no respiratory distress Cardiovascular: regular rate, rhythm, no gallop, no murmur Abdomen/GI: normal bowel sounds, non tender, soft, no organomegaly Back: normal inspection, no CVA tenderness Extremities/Musculoskelatal: no calf tenderness, non-tender Neurologic/Psych: alert, oriented x 3 Skin: normal color, warm/dry, no rash Lymphatic: no adenopathy Laboratory Results Date/Time Source Procedure Growth Status 03/09/17 18:45 Blood Blood Culture Pending Received Last 24 Hours Test 03/09/17 18:33 03/09/17 18:37 03/09/17 20:15 03/09/17 23:03 White Blood Count 5.66 K/uL Red Blood Count 3.92 M/uL Hemoglobin 11.3 g/dL Hematocrit 33.9 % Mean Corpuscular Volume 86.5 fL Mean Corpuscular Hemoglobin 28.8 pg Mean Corpuscular Hemoglobin Concent 33.3 g/dl Platelet Count 123 K/uL Mean Platelet Volume 10.7 fL Neutrophils (%) (Auto) 88.0 % Lymphocytes (%) (Auto) 9.0 % Monocytes (%) (Auto) 1.9 % Eosinophils (%) (Auto) 0.2 % Basophils (%) (Auto) 0.2 % Neutrophils # (Auto) 4.98 K/uL Lymphocytes # (Auto) 0.51 K/uL Monocytes # (Auto) 0.11 K/uL Eosinophils # (Auto) 0.01 K/uL Basophils # (Auto) 0.01 K/uL RDW Standard Deviation 39.7 fL RDW Coefficient of Variation 12.3 % Immature Granulocyte % (Auto) 0.7 % Immature Granulocyte # (Auto) 0.04 K/uL Tear Drop Cells 1+ Echinocytes 2+ Prothrombin Time 12.0 SECONDS Prothromb Time International Ratio 1.1 Bedside Lactic Acid Venous 3.14 mmol/L Urine Color ORANGE Urine Appearance CLEAR Urine pH 5.5 Urine Specific [place] 1.023 Urine Protein 1+ Urine Glucose (UA) NEG Urine Ketones 3+ Urine Occult Blood 1+ Urine Nitrite NEG Urine Bilirubin NEG Urine Urobilinogen NEG Urine Leukocyte Esterase NEG Urine WBC (Auto) 1-5 /hpf Urine RBC (Auto) 0-4 /hpf Urine Hyaline Casts (Auto) 1-5 /lpf Urine Epithelial Cells (Auto) >30 /lpf Urine Bacteria (Auto) NEG Urine Test NEG Activated Partial Thromboplast Time 25.4 SECONDS Partial Thromboplastin Ratio 1.0 Sodium Level 140 mmol/L Potassium Level 2.9 mmol/L Chloride Level 111 mmol/L Carbon Dioxide Level 23 mmol/L Anion Gap 6.0 mmol/L Blood Urea Nitrogen 8 mg/dl Creatinine 0.90 mg/dl Est Creatinine Clear Calc Drug Dose 94.3 ml/min Estimated GFR () 107.4 Estimated GFR (Non- 92.7 BUN/Creatinine Ratio 9.3 Random Glucose 95 mg/dl Lactic Acid Level 0.9 mmol/L Calcium Level 7.2 mg/dl Magnesium Level 1.4 mg/dl Total Bilirubin 1.1 mg/dl Aspartate Amino Transf (AST/SGOT) 18 U/L Alanine Aminotransferase (ALT/SGPT) 14 U/L Alkaline Phosphatase 53 U/L Total Protein 6.1 gm/dl Albumin 2.3 gm/dl Globulin 3.8 gm/dl Albumin/Globulin Ratio 0.6 Test 03/10/17 05:35 03/10/17 13:53 White Blood Count 5.44 K/uL Red Blood Count 2.89 M/uL Hemoglobin 8.4 g/dL Hematocrit 25.0 % Mean Corpuscular Volume 86.5 fL Mean Corpuscular Hemoglobin 29.1 pg Mean Corpuscular Hemoglobin Concent 33.6 g/dl Platelet Count 96 K/uL Mean Platelet Volume 9.8 fL Neutrophils (%) (Auto) 68.4 % Lymphocytes (%) (Auto) 17.3 % Monocytes (%) (Auto) 13.1 % Eosinophils (%) (Auto) 0.2 % Basophils (%) (Auto) 0.4 % Neutrophils # (Auto) 3.73 K/uL Lymphocytes # (Auto) 0.94 K/uL Monocytes # (Auto) 0.71 K/uL Eosinophils # (Auto) 0.01 K/uL Basophils # (Auto) 0.02 K/uL RDW Standard Deviation 40.3 fL RDW Coefficient of Variation 12.6 % Immature Granulocyte % (Auto) 0.6 % Immature Granulocyte # (Auto) 0.03 K/uL Platelet Estimate DECREASED Red Blood Cell Morphology Echinocytes 1+ Sodium Level 140 mmol/L Potassium Level 3.5 mmol/L Chloride Level 113 mmol/L Carbon Dioxide Level 21 mmol/L Anion Gap 6.0 mmol/L Blood Urea Nitrogen 7 mg/dl Creatinine 0.84 mg/dl Est Creatinine Clear Calc Drug Dose 101.1 ml/min Estimated GFR () 116.8 Estimated GFR (Non- 100.8 BUN/Creatinine Ratio 8.1 Random Glucose 109 mg/dl Lactic Acid Level 1.0 mmol/L Calcium Level 6.9 mg/dl Magnesium Level 1.7 mg/dl Total Bilirubin 0.9 mg/dl Aspartate Amino Transf (AST/SGOT) 16 U/L Alanine Aminotransferase (ALT/SGPT) 12 U/L Alkaline Phosphatase 51 U/L Total Protein 5.8 gm/dl Albumin 2.2 gm/dl Globulin 3.6 gm/dl Albumin/Globulin Ratio 0.6 Patient Name: KRISTAL HOLLAND Unit Number: [id number] Dictated: 03/09/171926 Transcribed: 03/09/171926 JA Printed Date/Time: [~ rep prt dt]/[~ rep prt tm] [~ rep ct labl] - [~ rep ct ivnm] [facility] [place] [address] Dictated: 03/09/171926 Transcribed: 03/09/171926 JA Printed Date/Time: [~ rep prt dt]/[~ rep prt tm] [~ rep ct labl] - [~ rep ct ivnm] [facility] PORTABLE CLINICAL HISTORY: Fever. COMPARISON STUDY: No previous studies for comparison. FINDINGS: The patient is rotated. No pneumothorax or pleural effusion is present. There is no consolidation to suggest pneumonia. Cardiomediastinal silhouette is normal. Pulmonary vascularity is normal. IMPRESSION: No acute cardiopulmonary findings. Electronically signed by: Myles Rico M.D. 03/09/2017 7:28 PM Dictated Date/Time: 03/09/2017 7:27 PM The status of this report is Signed. Draft = Not yet reviewed or approved by Radiologist. Signed = Reviewed and approved by Radiologist. <AttendingPhy></AttendingPhy> <FamilyPhy>No Doctor, Assigned</FamilyPhy> < PrimaryPhy>No Doctor, Assigned</PrimaryPhy> <UnitNumber>[id number]</UnitNumber> <VisitNumber>[id number]</VisitNumber> <PatientName>KRISTAL HOLLAND</PatientName> < DateOfBirth>1995</DateOfBirth> <Location>[facility]</Location> <ServiceDate></ServiceDate> <MNE>ESINDI</MNE> <OrderingPhy>David Dale M.D.</ OrderingPhy> <OrderingPhyMNE>f rep ord dr irving</OrderingPhyMNE> <DictatingPhyMNE> f rep dict dr irving</DictatingPhyMNE> <CCListMNE>f rep ct mne</CCListMNE> < AdmittingPhyMNE>f pt admit dr irving</AdmittingPhyMNE> <AttendingPhyMNE>f pt attend dr irving</AttendingPhyMNE> <ConsultingPhyMNE>f pt consult dr irving</ConsultingPhyMNE> <FamilyPhyMNE>f pt fam dr irving</FamilyPhyMNE> <OtherPhyMNE>f pt other dr irving</OtherPhyMNE> < PrimaryPhyMNE>f pt prim care dr irving</PrimaryPhyMNE> <ReferringPhyMNE>f pt referring dr irving</ReferringPhyMNE> Assessment & Plan 21-year-old [place] female with acute falciparum malaria, with parasitemia calculated at less than 1 percent. No evidence of cerebral malaria present. optimal therapy would be combination of artemether-lumefantrine, and pending availability of above, would continue patient on combination of quinine and doxycycline. Appears to be clinically improving. Would watch CBC carefully as appears to be developing significant anemia and thrombocytopenia. Will follow.
[2017-03-10 19:33] VITALS: BP 98/68; PULSE 73; TEMP 36.5; O2SAT 99
[2017-03-11] VITALS: BP 114/77; PULSE 87; TEMP 36.8; O2SAT 98
[2017-03-11] MEDS: NSS + 20MEQ KCL 1000ML 1,000 ML IV SCH ×3 (00:37→14:00)
[2017-03-11 03:53] VITALS: BP 103/61; PULSE 94; TEMP 36.8; O2SAT 97
[2017-03-11] MEDS: QUINine SULFATE CAP 324 MG CAP PO SCH ×3 (05:49→16:30)
[2017-03-11 06:19] LABS: BASO % 0.3 %; BASO ABS # 0.02 K/uL (0-0.2); COMPLETE YES; EOS % 0.5 %; HEMATOCRIT 28.1 % (37-47); IG% 0.8 %; LYMPH % 18.8 %; LYMPH ABS # 1.19 K/uL (1.2-3.4); MEAN CORPUSCULAR HEMOGLOBIN 29.1 pg (25-34); MEAN CORPUSCULAR HGB CONC 33.5 g/dl (32-36); MEAN PLATELET VOLUME 11.2 fL (7.4-10.4); MONO % 11.7 %; NEUT % 67.9 %; PLATELET COUNT 143 K/uL (130-400); RED BLOOD COUNT 3.23 M/uL (4.2-5.4); WHITE BLOOD COUNT 6.32 K/uL (4.8-10.8)
[2017-03-11 06:46] LABS: BUN/CREATININE RATIO 5.8 (10-20); CREATININE 0.76 mg/dl (0.60-1.20); MAGNESIUM 1.6 mg/dl (1.8-2.4)
[2017-03-11 06:50] LABS: ALB/GLOB RATIO 0.6 (0.9-2)
[2017-03-11] MEDS ORDERED: ACETAMINOPHEN 500 MG TAB PO ONE (07:37)
[2017-03-11] MEDS: DOXYCYCLINE IV 100 MG in DEXTROSE 5% 100ML 100 ML IV SCH (07:40)
[2017-03-11 07:59] VITALS: BP 120/74; PULSE 102; TEMP 37.2; O2SAT 97
[2017-03-11] MEDS ORDERED: NURSING VERBAL MED ORDER ONE ×2 (09:30→17:00)
[2017-03-11] MEDS ORDERED: ACETAMINOPHEN 500 MG TAB PO SCH (10:00)
--- NOTE | 2017-03-11 10:01 | Family Medicine Progress Note ---
Progress Note Date of Service Mar 11, 2017. Subjective Pt evaluation today including: conversation w/ patient, physical exam, chart review, lab review 21 yo female being treated for malaria -Pt c/o KEARNEY this morning. Pt reports vomiting last night, but today the patient denies n/v or diarrhea. Pt denies subjective fever -Pt denies SOB, chest pain or abdominal pain. -Pt does not have any cold symptoms: runny nose, sore throat. -Pt says she slept well. Constitutional: No fever, No chills Respiratory: No cough, No sputum, No shortness of breath Cardiovascular: No chest pain Abdomen: + nausea, + vomiting, No pain Female : No dysuria Medications Current Inpatient Medications Medications (Trade) Dose Ordered Sig/Joseph Route Start Time Stop Time Status Last Admin Dose Admin Ondansetron HCl (Zofran Inj) 4 mg Q6H PRN IV 03/09/17 22:00 04/08/17 21:59 03/10/17 23:01 4 MG Acetaminophen 650 mg/Empty Bag 65 ml @ 260 mls/hr Q6H PRN IV 03/09/17 22:00 04/08/17 21:59 03/10/17 10:13 260 MLS/HR Quinine Sulfate (QUINine SULFATE CAP) 648 mg Q8 PO 03/10/17 06:00 04/09/17 05:59 03/11/17 05:49 648 MG Doxycycline Hyclate 100 mg/ Dextrose 110 ml @ 50 mls/hr BID@0900,2100 IV 03/10/17 09:00 03/24/17 08:59 03/11/17 07:40 50 MLS/HR Potassium Chloride/Sodium Chloride 1,000 ml @ 200 mls/hr Q5H IV 03/10/17 00:00 04/09/17 00:00 03/11/17 05:48 200 MLS/HR Acetaminophen (Tylenol Tab) 500 mg Q4H PO 03/11/17 10:00 04/10/17 09:59 Miscellaneous Information (Nursing Verbal Med Order) 1 ea ONE ONCE N/A 03/11/17 09:30 03/11/17 09:31 UNV Magnesium Oxide (Mag-Ox Tab) 400 mg BID PO 03/11/17 21:00 04/10/17 20:59 UNV Magnesium Oxide (Mag-Ox Tab) 400 mg 0941 ONCE PO 03/11/17 09:41 03/11/17 09:42 UNV Objective Vital Signs Date Time Temp Pulse Resp B/P (MAP) Pulse Ox O2 Delivery O2 Flow Rate FiO2 03/11/17 08:00 Room Air 03/11/17 07:59 37.2 102 19 120/74 (89) 97 Room Air 03/11/17 04:00 Room Air 03/11/17 03:53 36.8 94 20 103/61 (75) 97 Room Air 03/11/17 00:00 36.8 87 20 114/77 (89) 98 Room Air 03/10/17 23:59 Room Air 03/10/17 20:00 Room Air 03/10/17 19:33 36.5 73 16 98/68 (78) 99 Room Air 03/10/17 16:00 Room Air 03/10/17 15:27 36.5 81 18 95/61 (72) 99 Room Air 03/10/17 12:17 37.1 79 18 95/64 (74) 98 Room Air 03/10/17 12:00 Room Air Physical Exam General Appearance: WD/WN, no apparent distress Eyes: normal inspection, sclerae normal Neck: supple, no adenopathy Respiratory/Chest: chest non-tender, lungs clear, normal breath sounds, no respiratory distress, no accessory muscle use Cardiovascular: regular rate, rhythm, no edema, no gallop Abdomen: normal bowel sounds, non tender, soft, no organomegaly Extremities: no pedal edema Neurologic/Psychiatric: alert, normal mood/affect, oriented x 3 Skin: normal color, warm/dry, no rash Laboratory Results 03/11/17 05:21 Red Blood Count 3.23, Mean Corpuscular Volume 87.0, Mean Corpuscular Hemoglobin 29.1, Mean Corpuscular Hemoglobin Concent 33.5, Mean Platelet Volume 11.2, Neutrophils (%) (Auto) 67.9, Lymphocytes (%) (Auto) 18.8, Monocytes (%) (Auto) 11.7, Eosinophils (%) (Auto) 0.5, Basophils (%) (Auto) 0.3, Neutrophils # (Auto ) 4.29, Lymphocytes # (Auto) 1.19, Monocytes # (Auto) 0.74, Eosinophils # (Auto ) 0.03, Basophils # (Auto) 0.02 03/11/17 05:21 Test 03/10/17 13:53 03/11/17 05:21 Peripheral Blood Smear Path Consult White Blood Count 6.32 K/uL (4.8-10.8) Red Blood Count 3.23 M/uL (4.2-5.4) Hemoglobin 9.4 g/dL (12.0-16.0) Hematocrit 28.1 % (37-47) Mean Corpuscular Volume 87.0 fL (80-100) Mean Corpuscular Hemoglobin 29.1 pg (25-34) Mean Corpuscular Hemoglobin Concent 33.5 g/dl (32-36) Platelet Count 143 K/uL (130-400) Mean Platelet Volume 11.2 fL (7.4-10.4) Neutrophils (%) (Auto) 67.9 % Lymphocytes (%) (Auto) 18.8 % Monocytes (%) (Auto) 11.7 % Eosinophils (%) (Auto) 0.5 % Basophils (%) (Auto) 0.3 % Neutrophils # (Auto) 4.29 K/uL (1.4-6.5) Lymphocytes # (Auto) 1.19 K/uL (1.2-3.4) Monocytes # (Auto) 0.74 K/uL (0.11-0.59) Eosinophils # (Auto) 0.03 K/uL (0-0.5) Basophils # (Auto) 0.02 K/uL (0-0.2) RDW Standard Deviation 42.7 fL (36.4-46.3) RDW Coefficient of Variation 13.3 % (11.5-14.5) Immature Granulocyte % (Auto) 0.8 % Immature Granulocyte # (Auto) 0.05 K/uL (0.00-0.02) Anion Gap 7.0 mmol/L (3-11) Est Creatinine Clear Calc Drug Dose 111.6 ml/min Estimated GFR () 131.8 Estimated GFR (Non- 113.7 BUN/Creatinine Ratio 5.8 (10-20) Calcium Level 8.0 mg/dl (8.5-10.1) Magnesium Level 1.6 mg/dl (1.8-2.4) Total Bilirubin 1.0 mg/dl (0.2-1) Aspartate Amino Transf (AST/SGOT) 22 U/L (15-37) Alanine Aminotransferase (ALT/SGPT) 23 U/L (12-78) Alkaline Phosphatase 70 U/L (45-117) Total Protein 6.7 gm/dl (6.4-8.2) Albumin 2.5 gm/dl (3.4-5.0) Globulin 4.2 gm/dl (2.5-4.0) Albumin/Globulin Ratio 0.6 (0.9-2) Assessment and Plan Malaria - Return from [facility] 07Aug, sx onset 15Aug. Positive smear with likely Falciparum, count 1%. -Continue 100mg IV Doxycycline and 648 mg PO Quinine today -Will f/u with Dr. 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 Pt on Doxy/ Quinine tonight and tomorrow am. Sepsis -Resolved -20Aug Lactic Acid 1.0, pt remained afebrile -Pt is vitals and white count have remained stable -19Aug: Started in ED on Cefepime & Doxy, given IVF. Switched to Doxy/Quinine -Feb, on admission: Lactate 3.4, temp 39.2, tachycardic Hypokalemia & Hypomagnesemia - Pt had one episode of emesis last night - IV KCl and PO Mg 400mg replacement. - pt K 4.0 today -Mg 1.6 this morning. Replaced with 400mg PO. Dehydration -Pt has been nauseous and had one episode of emesis last night. -Monitoring vital signs: pt was tachy this morning, but has improved into the afternoon. -Dc'ed IVF -Pt is tolerating food today and expresses less nausea -Scheduled Zofran for any recurrent nausea. DVT prophy: Mechanical only Code status: Full
[2017-03-11] MEDS ORDERED: MAGNESIUM OXIDE 400 MG TAB PO ONE (10:15)
[2017-03-11] MEDS ORDERED: ACETAMINOPHEN 500 MG TAB PO PRN (10:15)
[2017-03-11 11:35] VITALS: BP 106/72; PULSE 84; TEMP 37.2; O2SAT 97
--- NOTE | 2017-03-11 14:16 | Infectious Disease Progress Nt ---
Progress Note Date of Service Mar 11, 2017. Subjective Pt evaluation today including: conversation w/ patient, physical exam, chart review, lab review, review of studies, conversation w/ life consultant, review of inpatient medication list Episode of vomiting last night. No fever. No headache or SOB. H/H and platelets improved. Parasetemia remains < 2%. All Other Systems: Reviewed and Negative Medications Current Inpatient Medications Medications (Trade) Dose Ordered Sig/Joseph Route Start Time Stop Time Status Last Admin Dose Admin Ondansetron HCl (Zofran Inj) 4 mg Q6H PRN IV 03/09/17 22:00 04/08/17 21:59 03/10/17 23:01 4 MG Acetaminophen 650 mg/Empty Bag 65 ml @ 260 mls/hr Q6H PRN IV 03/09/17 22:00 04/08/17 21:59 03/10/17 10:13 260 MLS/HR Quinine Sulfate (QUINine SULFATE CAP) 648 mg Q8 PO 03/10/17 06:00 04/09/17 05:59 03/11/17 13:59 648 MG Doxycycline Hyclate 100 mg/ Dextrose 110 ml @ 50 mls/hr BID@0900,2100 IV 03/10/17 09:00 03/24/17 08:59 03/11/17 07:40 50 MLS/HR Magnesium Oxide (Mag-Ox Tab) 400 mg BID PO 03/11/17 21:00 04/10/17 20:59 Acetaminophen (Tylenol Tab) 500 mg Q4H PRN PO 03/11/17 10:15 04/10/17 10:14 Objective Vital Signs Date Time Temp Pulse Resp B/P (MAP) Pulse Ox O2 Delivery O2 Flow Rate FiO2 03/11/17 12:00 Room Air 03/11/17 11:35 37.2 84 17 106/72 (83) 97 Room Air 03/11/17 08:00 Room Air 03/11/17 07:59 37.2 102 19 120/74 (89) 97 Room Air 03/11/17 04:00 Room Air 03/11/17 03:53 36.8 94 20 103/61 (75) 97 Room Air 03/11/17 00:00 36.8 87 20 114/77 (89) 98 Room Air 03/10/17 23:59 Room Air 03/10/17 20:00 Room Air 03/10/17 19:33 36.5 73 16 98/68 (78) 99 Room Air 03/10/17 16:00 Room Air 03/10/17 15:27 36.5 81 18 95/61 (72) 99 Room Air Physical Exam General Appearance: WD/WN, no apparent distress Eyes: normal inspection, sclerae normal ENT: normal ENT inspection, pharynx normal Neck: supple, no adenopathy, trachea midline Respiratory/Chest: chest non-tender, lungs clear, normal breath sounds, no respiratory distress Cardiovascular: regular rate, rhythm, no gallop, no murmur Abdomen: normal bowel sounds, non tender, soft, no organomegaly Extremities: non-tender, no calf tenderness Neurologic/Psychiatric: alert, oriented x 3 Skin: normal color, no rash Lymphatic: no adenopathy Laboratory Results Last 24 Hours Test 03/11/17 05:21 White Blood Count 6.32 K/uL Red Blood Count 3.23 M/uL Hemoglobin 9.4 g/dL Hematocrit 28.1 % Mean Corpuscular Volume 87.0 fL Mean Corpuscular Hemoglobin 29.1 pg Mean Corpuscular Hemoglobin Concent 33.5 g/dl Platelet Count 143 K/uL Mean Platelet Volume 11.2 fL Neutrophils (%) (Auto) 67.9 % Lymphocytes (%) (Auto) 18.8 % Monocytes (%) (Auto) 11.7 % Eosinophils (%) (Auto) 0.5 % Basophils (%) (Auto) 0.3 % Neutrophils # (Auto) 4.29 K/uL Lymphocytes # (Auto) 1.19 K/uL Monocytes # (Auto) 0.74 K/uL Eosinophils # (Auto) 0.03 K/uL Basophils # (Auto) 0.02 K/uL RDW Standard Deviation 42.7 fL RDW Coefficient of Variation 13.3 % Immature Granulocyte % (Auto) 0.8 % Immature Granulocyte # (Auto) 0.05 K/uL Sodium Level 139 mmol/L Potassium Level 4.0 mmol/L Chloride Level 110 mmol/L Carbon Dioxide Level 22 mmol/L Anion Gap 7.0 mmol/L Blood Urea Nitrogen 4 mg/dl Creatinine 0.76 mg/dl Est Creatinine Clear Calc Drug Dose 111.6 ml/min Estimated GFR () 131.8 Estimated GFR (Non- 113.7 BUN/Creatinine Ratio 5.8 Random Glucose 65 mg/dl Calcium Level 8.0 mg/dl Magnesium Level 1.6 mg/dl Total Bilirubin 1.0 mg/dl Aspartate Amino Transf (AST/SGOT) 22 U/L Alanine Aminotransferase (ALT/SGPT) 23 U/L Alkaline Phosphatase 70 U/L Total Protein 6.7 gm/dl Albumin 2.5 gm/dl Globulin 4.2 gm/dl Albumin/Globulin Ratio 0.6 Assessment and Plan 21-year-old [place] female with acute falciparum malaria, with parasitemia calculated at less than 2 percent. No evidence of cerebral malaria present. optimal therapy would be combination of artemether-lumefantrine, and pending availability of above, would continue patient on combination of quinine and doxycycline. Appears to be clinically improving and so can transition to oral therapy.
[2017-03-11 15:36] VITALS: BP 111/70; PULSE 78; TEMP 36.8; O2SAT 96
--- NOTE | 2017-03-11 15:37 | Discharge Instructions ---
Discharge Instructions Date of Service Mar 11, 2017. Admission Reason for Admission: Lactic Acid Increased, uncomplicated Malaria, Sepsis Discharge Discharge Diagnosis / Problem: Uncomplicated Malaria (plasmodium falciparum) Discharge Goals Goal(s): Decrease discomfort, Improve function, Improve disease control, Improve nutritional status Activity Recommendations Activity Limitations: resume your previous activity . Instructions / Follow-Up Instructions / Follow-Up Ms. Dave, When you came to the hospital you were very sick. Your illness was confirmed to be due to Malaria that you most likely got while visiting family in [facility]. As you may already know, malaria is a parasite transmitted by mosquito bites. The parasites infects the red blood cells and causes destruction of these cells. The illness leaves people very fatigued, with nausea and vomiting. In your situation, the course of the illness has been manageable and we have been able to treat the malaria with two drugs: Doxycycline and Quinine. You have showed marked improvements and we feel that your disease course is resolving. With that said, we are discharging you home with the following instructions: 1. Pick-up prescription for anti-malaria medication,Coartem at [facility] in [facility], with these instructions: -Four tablets at hour 0 and hour 8 on the first day, -Then 4 tablets twice daily on day 2 and day 3 (total of 24 tablets per treatment course) 2. Rest and hydrate. 3. Please follow-up with your primary care physician in the outpatient clinic. 4. If symptoms worsen please don't hesitate to get help and go to the emergency room. Current Hospital Diet Patient's current hospital diet: Full Liquid Diet Discharge Diet Recommended Diet: Regular Diet Pending Studies Studies pending at discharge: no Medical Emergencies . Who to Call and When: Medical Emergencies: If at any time you feel your situation is an emergency, please call 911 immediately. . Non-Emergent Contact Non-Emergency issues call your: Primary Care Provider Call Non-Emergent contact if: you have a fever, temperature is above 101.5, your pain is not controlled, your pain is worsening . . "Provider Documentation" section prepared by Mitchell Clarke. . VTE Core Measure Inpt VTE Proph given/why not?: Treatment not indicated (young age, mobile)
[2017-03-11] MEDS ORDERED: ONDA4TAB10 SL (15:52)
[2017-03-11] MEDS ORDERED: [UNRECOGNIZED DRUG - CODE] PO (15:52)
[2017-03-11 16:06] VITALS: BP 111/70; PULSE 78; TEMP 36.8; O2SAT 96
[2017-03-11] MEDS ORDERED: DOXYCYCLINE HYCLATE 100 MG CAP PO ONE ×3 (16:15→18:00)
[2017-03-11] MEDS: ONDANSETRON INJ 2 MG/ML 2 ML VIAL IV PRN (16:52)
[2017-03-11] MEDS ORDERED: DOXYCYCLINE HYCLATE 100 MG CAP PO SCH (17:00)
[2017-03-11] MEDS ORDERED: ONDANSETRON HOME PACK 4MG OD TAB PO ONE (19:15)
--- NOTE | 2017-03-11 20:30 | Discharge Summary ---
Discharge Summary Date of Service Mar 11, 2017. (Mitchell Clarke M.D.) Discharge Summary Admission Date: Mar 09, 2017 at 21:58 Discharge Date: Mar 11, 2017 Discharge Disposition: Home Principal Diagnosis: uncomplicated malaria (Mtichell Clarke M.D.) Medication Reconciliation New Medications: Artemether-Lumefantrine (Coartem) 1 Tab Tab 1 TAB PO UD for 3 Days, #24 Four tablets at hour 0 and hour 8 on the first day, then 4 tablets twice daily on day 2 and day 3 (total of 24 tablets per treatment course) Ondasetron Odt (Zofran Odt) 4 Mg Tab 4 MG SL Q6H for Nausea, #6 TAB Continued Medications: Acetaminophen (Tylenol) 500 Mg Tab 1000 MG PO PRN UD, TAB Discharge Exam see progress note for history, ROS and exam (Mitchell Clarke M.D.) tolerated oral antibiotics well Review of Systems: Constitutional: No fever Respiratory: No shortness of breath Cardiovascular: No chest pain Physical Exam: General Appearance: no apparent distress Respiratory/Chest: lungs clear, no respiratory distress Cardiovascular: regular rate, rhythm Abdomen / GI: normal bowel sounds, non tender, soft Neurologic/Psychiatric: alert, oriented x 3 Skin: warm/dry (Luli De Paz M.D.) Hospital Course Ms. Dave was admitted to [facility] on Saturday evening (03/09) with a fever, nausea and vomiting. She was first was unwell on Saturday with chills and nausea. The patient remarked that her symptoms would get better and then relapse over the course of the week. She was seen at [facility] and sent home with suspected gastroenteritis. Her fevers, N and V were unremitting and the patient decided to come to the hospital for treatment. Pt has a PMHx of malaria from childhood growing up in [place]. Pt had just recently returned from a trip to [facility]. In the ER she had a temperature and was tachycardic and therefore was treated for sepsis with cefepime. Peripheral smear subsequently showed malaria parasites - most consistent with P.Falciparum with a count of 1%. This was discussed by the ER doctor with [facility] and Dr Altamirano and decided to treat with quinine + doxycycline. Over the course of the hospitalization, the patients condition improved. The patient was treated with IVF, supplemental K and Mg and symptomatically with Tylenol and Zofran from headaches and nausea. On discharge ID recommended prescribing antimalarial medication, Coartem, which had to be special ordered and to be picked the day after discharge. Pt was given a dose of doxy and quinidine for the evening of discharge and the morning after discharge. Coartem instructions: four tablets at hour 0 and hour 8 on the first day, then 4 tablets twice daily on day 2 and day 3 (total of 24 tablets per treatment course) See Problem list below for details of hospital course : Malaria - Return from [facility] 07Aug, sx onset 15Aug. Positive smear with likely Falciparum, count 1%. -Continue 100mg IV Doxycycline and 648 mg PO Quinine today -Will f/u with Dr. Altamirano regarding abx therapy moving forward -Dr Altamirano remarked in previous consultation that ideal treatment would be: artemether-lumefantrine (Coartam) -Pt will be discharged today and picket [employer] and start Coartam tomorrow. Pt on Doxy/ Quinine tonight and tomorrow am. Sepsis -Resolved -20Aug Lactic Acid 1.0, pt remained afebrile -Pt is vitals and white count have remained stable -19Aug: Started in ED on Cefepime & Doxy, given IVF. Switched to Doxy/Quinine -Feb, on admission: Lactate 3.4, temp 39.2, tachycardic Hypokalemia & Hypomagnesemia - Pt had one episode of emesis last night - IV KCl and PO Mg 400mg replacement. - pt K 4.0 today -Mg 1.6 this morning. Replaced with 400mg PO. Dehydration -Pt has been nauseous and had one episode of emesis last night. -Monitoring vital signs: pt was tachy this morning, but has improved into the afternoon. -Dc'ed IVF -Pt is tolerating food today and expresses less nausea -Scheduled Zofran for any recurrent nausea. Total Time Spent: Less than 30 minutes This includes examination of the patient, discharge planning, medication reconciliation, and communication with other providers. (Mitchell Clarke M.D.) Resident Physician Supervision Note: I was present with Dr. Clarke in bedside. I verified the curiel history and physical, reviewed labs and image studies, discussed the case with the resident and agree with the findings and care plan. Total Time Spent: Greater than 30 minutes (35) (Luli De Paz M.D.) Discharge Instructions Please refer to the electronic Patient Visit Report (Discharge Instructions) for additional information. (Mitchell Clarke M.D.) Additional Copies To [facility]
[2017-03-11] MEDS ORDERED: MAGNESIUM OXIDE 400 MG TAB PO SCH (21:00)
== END 2017-03-11 19:50 | disposition home or self-care (01) | DRG 871 ==
LOC: C.EDB 17:58 → C.2E 21:58 → CANRESERV 22:15 → ENRESERV 22:15 → CANBEDREQ 03-11 17:27
PROVIDERS: ADMIT Internal Medicine; ATTEND Family Medicine
DX: A41.9 Sepsis, unspecified organism (principal); B50.9 Plasmodium falciparum malaria, unspecified; E87.6 Hypokalemia; E83.42 Hypomagnesemia; E86.0 Dehydration